=== PATIENT | male | born 1985 | race Caucasian/White ===

== ENCOUNTER → 2018-05-29 | Day surgery (SDC) | payer MEDICARE, MEDICAID ==
[~2018-05-29] VITALS: Ht 154.9 cm; Wt 79.4 kg
[~2018-05-29] MED LIST: ACETAMINOPHEN WITH CODEINE 300/30MG TABLET PO PRN; BACITRACIN 15GM TUBE TOP ONE; BUPIVACAINE HCL/PF 0.25% (2.5MG/ML) 10ML ONE; DEXAMETHASONE 4MG/ML 1ML VIAL ONE; FENTANYL CITRATE/PF 50MCG/ML 2ML VIAL ONE; HYDROMORPHONE HCL/PF 2MG/ML CPJ IV PRN; LABETALOL 5MG/ML SYR 20 MG/4 ML SYRINGE IV PRN; LACTATED RINGERS 1,000 ML IV SCH; METOCLOPRAMIDE HCL 10MG/2ML VIAL IV NR; MIDAZOLAM HCL 2 MG/2 ML VIAL ONE; ONDANSETRON HCL 4MG/2ML INJ IV PRN; ONDANSETRON HCL 4MG/2ML INJ ONE; PANTOPRAZOLE SODIUM 40 MG/VIAL IV NR; PROPOFOL 200MG/20ML VIAL IV ONE
[2018-05-29] MEDS: MEPERIDINE HCL/PF 25MG/ML CPJ IV PRN ×2 (09:43→10:23)
[2018-05-29 10:23] VITALS: BP 150/54
== END | disposition home or self-care (01) ==
LOC: OR 05:29
PROVIDERS: ATTEND Urology
DX: N47.1 Phimosis (principal); Q90.9 Down syndrome, unspecified
CPT/HCPCS: 54161; C9113; J1100; J2175; J2250; J2405; J2704; J2765; J3010; J3490